=== PATIENT | female | born 1935 | race Caucasian/White ===

== ENCOUNTER → 2017-02-14 | Outpatient (CLI) | payer MEDICARE, OTHER ==
[~2017-02-14] MED LIST: ALBUTEROL0.63 MG/3 INH; ASPIR 8181 MG PO; CEFUROXIME250 MG PO; COLACE 100MG C100 MG PO; CRESTOR10 MG PO; LANTUS100 UNIT/1 SQ; LASIX20 MG PO; LINZESS145 MCG PO; MEDROL DOSEPAK 24 MG PO; METOPROLOL TART25 MG PO; MULTIPLE VITAM1 EACH PO; NOVOLOG 10100 UNITS1 INJ; PERFOROMIS20 MCG/21 HHN; PRESERVISION A1 EAC1 PO; PROAIR HFA8.5 GM INH; PULMICORT FLE180 MCG INH; SYNTHROID50 MCG PO; TRAVATAN Z OP; VALIUM 2 MG TAB2 MG PO; VITAMIN D250000 UNIT PO
== END ==
LOC: RAD 12:25
DX: R05 Cough (principal)
CPT/HCPCS: 71020

== ENCOUNTER 2017-02-25 17:44 | Inpatient (IN) | payer MEDICARE, OTHER ==
[~2017-02-25] VITALS: Ht 152.4 cm; Wt 83.5 kg
[2017-02-25 19:06] LABS: HEMOGLOBIN 11.5 gm/dl (12.3-15.3); RED BLOOD COUNT 3.8 M/UL (4.00-5.10); WHITE BLOOD COUNT 9.5 K/UL (4.5-11.0)
[2017-02-25] MEDS ORDERED: LASIX20 MG PO (23:50)
[2017-02-25] MEDS ORDERED: METOPROLOL TART25 MG PO (23:51)
[2017-02-25] MEDS ORDERED: CRESTOR10 MG PO (23:51)
[2017-02-25] MEDS ORDERED: LINZESS145 MCG PO (23:52)
[2017-02-25] MEDS ORDERED: MULTIPLE VITAM1 EACH PO (23:52)
[2017-02-25] MEDS ORDERED: ALBUTEROL0.63 MG/3 INH (23:53)
[2017-02-25] MEDS ORDERED: ASPIR 8181 MG PO (23:53)
[2017-02-25] MEDS ORDERED: TRAVATAN Z OP (23:55)
[2017-02-25] MEDS ORDERED: SYNTHROID50 MCG PO (23:56)
[2017-02-25] MEDS ORDERED: COLACE 100MG C100 MG PO (23:56)
[2017-02-25] MEDS ORDERED: VALIUM 2 MG TAB2 MG PO (23:57)
[2017-02-25] MEDS ORDERED: PERFOROMIS20 MCG/21 HHN (23:58)
[2017-02-25] MEDS ORDERED: PRESERVISION A1 EAC1 PO (23:58)
[2017-02-25] MEDS ORDERED: VITAMIN D250000 UNIT PO (23:59)
[2017-02-25] MEDS ORDERED: LANTUS100 UNIT/1 SQ (23:59)
[2017-02-26] MEDS ORDERED: PULMICORT FLE180 MCG INH
[2017-02-26] MEDS ORDERED: NOVOLOG 10100 UNITS1 INJ (00:02)
[2017-02-26] MEDS ORDERED: PROAIR HFA8.5 GM INH (00:02)
[2017-02-26 04:52] LABS: HEMOGLOBIN 10.6 gm/dl (12.3-15.3); RED BLOOD COUNT 3.52 M/UL (4.00-5.10); WHITE BLOOD COUNT 9.1 K/UL (4.5-11.0)
[2017-02-27 06:49] LABS: HEMOGLOBIN 11.8 gm/dl (12.3-15.3); RED BLOOD COUNT 3.84 M/UL (4.00-5.10)
[2017-02-27 06:51] LABS: WHITE BLOOD COUNT 15.6 K/UL (4.5-11.0)
[2017-02-28] MEDS ORDERED: MEDROL DOSEPAK 24 MG PO (17:36)
[2017-02-28] MEDS ORDERED: CEFUROXIME250 MG PO (17:37)
== END 2017-02-28 18:24 | disposition home or self-care (01) | DRG 194 ==
LOC: ER1 17:44 → M/S 20:24 → ZEROF 20:24 → M/S 22:29
PROVIDERS: Internal Medicine; Physician Assistant; ADMIT Hospitalist
DX: J18.9 Pneumonia, unspecified organism (principal); J90 Pleural effusion, not elsewhere classified; J45.909 Unspecified asthma, uncomplicated; E11.65 Type 2 diabetes mellitus with hyperglycemia; I25.10 Atherosclerotic heart disease of native coronary artery without angina pectoris; I10 Essential (primary) hypertension; D64.9 Anemia, unspecified; E03.9 Hypothyroidism, unspecified; I27.2 Other secondary pulmonary hypertension; I07.1 Rheumatic tricuspid insufficiency; E66.9 Obesity, unspecified; Z68.35 Body mass index [BMI] 35.0-35.9, adult; F41.9 Anxiety disorder, unspecified; Z95.1 Presence of aortocoronary bypass graft; Z79.82 Long term (current) use of aspirin; Z79.4 Long term (current) use of insulin; Z99.81 Dependence on supplemental oxygen; Z79.51 Long term (current) use of inhaled steroids; Z79.899 Other long term (current) drug therapy; Z88.3 Allergy status to other anti-infective agents; Z88.6 Allergy status to analgesic agent; Z88.5 Allergy status to narcotic agent; Z88.2 Allergy status to sulfonamides; Z90.49 Acquired absence of other specified parts of digestive tract; Z98.890 Other specified postprocedural states
CPT/HCPCS: ECHO; 36415; 71010; 71020; 80048; 80053; 82947; 82962; 83605; 84484; 85025; 85027; 87040; 87081; 87278; 87899; 93306; 94640; 94664; 96374; 99285; J0456; J0696; J1815; J2920; J7030; J7050; J7509

== ENCOUNTER → 2017-03-27 | Outpatient (CLI) | payer MEDICARE, OTHER | LOC: EXRD 11:31 | DX: J18.9 Pneumonia, unspecified organism (principal); J98.4 Other disorders of lung | CPT/HCPCS: 71020 ==

== ENCOUNTER → 2020-09-13 | Outpatient (CLI) | payer MEDICARE, OTHER ==
[~2020-09-13] MED LIST changes: +ACETAZOLAMIDE250 MG PO; +ADVAIR 250-501 EACH INH; +BUDESONIDE INH; +CEFPODOXIME PR100 MG PO; +DOXYCYCLINE HY100 MG PO; +HUMIBID LA TAB600 MG PO; +IMDUR ER TAB 3030 MG PO; +IPRAT-ALBUT 0.5-3 ML INH; +LEVAQUIN500 MG PO; +LOPRESSOR 50 MG50 MG PO; +MEDROL4 MG PO; +NOVOLOG100 UNIT/1 SQ; +PERFOROMIS20 MCG/21 INH; +PREDNISONE10 MG PO; +PREDNISONE20 MG PO; +PRINIVIL5 MG PO; +SINGULAIR10 MG PO; +SYMBICORT 16010.2 GM INH; -TRAVATAN Z OP; +TRAVATAN Z OU; +VALIUM2 MG PO; +VIBRAMYCIN100 MG PO; +ZESTRIL5 MG PO; +ZITHROMAX250 MG PO
== END ==
LOC: CATH 07:29
DX: T82.857A Stenosis of other cardiac prosthetic devices, implants and grafts, initial encounter (principal); I25.118 Atherosclerotic heart disease of native coronary artery with other forms of angina pectoris; I27.20 Pulmonary hypertension, unspecified; I25.82 Chronic total occlusion of coronary artery; Y83.1 Surgical operation with implant of artificial internal device as the cause of abnormal reaction of the patient, or of later complication, without mention of misadventure at the time of the procedure; I13.0 Hypertensive heart and chronic kidney disease with heart failure and stage 1 through stage 4 chronic kidney disease, or unspecified chronic kidney disease; I05.0 Rheumatic mitral stenosis; I50.9 Heart failure, unspecified; N18.9 Chronic kidney disease, unspecified; I48.91 Unspecified atrial fibrillation; E11.9 Type 2 diabetes mellitus without complications; Z79.4 Long term (current) use of insulin; Z95.5 Presence of coronary angioplasty implant and graft; Z82.49 Family history of ischemic heart disease and other diseases of the circulatory system; Z79.82 Long term (current) use of aspirin; Z79.899 Other long term (current) drug therapy; Y83.2 Surgical operation with anastomosis, bypass or graft as the cause of abnormal reaction of the patient, or of later complication, without mention of misadventure at the time of the procedure
CPT/HCPCS: 82810; 94664; 99152; 99153; C1751; C1769; J1644; J2250; J7030; Q9965

== ENCOUNTER 2020-11-03 10:58 | Emergency (ER) | payer MEDICARE, OTHER | END 2020-11-03 11:02 | disposition E | LOC: ER1 10:58 | DX: I46.9 Cardiac arrest, cause unspecified (principal); E11.22 Type 2 diabetes mellitus with diabetic chronic kidney disease; N18.9 Chronic kidney disease, unspecified; J44.9 Chronic obstructive pulmonary disease, unspecified; Z95.1 Presence of aortocoronary bypass graft; Z66 Do not resuscitate | CPT/HCPCS: 99285; J0171; J0461 ==